=== PATIENT | female | born 1955 ===

== ENCOUNTER 2024-08-07 08:13 | Emergency (ER) | payer MEDICARE, MEDICAID, SELFPAY ==
--- NOTE | ~2024-08-07 | US_ITS ---
EXAMINATION: US ABDOMEN LIMITED CLINICAL INFORMATION: Right upper quadrant. COMPARISON: None available. TECHNIQUE: Real-time imaging of the right upper quadrant abdominal viscera. FINDINGS: PANCREAS: Normal. LIVER: Normal. The liver is normal in size. The liver contour is normal. Parenchymal echogenicity is normal. No focal hepatic lesion. There is no intrahepatic biliary duct dilatation seen. GALLBLADDER: A 4 mm polyp is evident within the gallbladder. There is some ringdown artifact indicative of hyperplastic cholecystosis. No shadowing calculus, wall thickening or pericholecystic edema is evident. There was some pain in the right upper quadrant upon sonographic compression. COMMON BILE DUCT: Normal in caliber measuring 0.4 cm in diameter. RIGHT KIDNEY: There are several calculi in the right kidney, including a 2 mm upper pole calculus and a 2 mm mid to upper pole calculus. There is mild fullness of the right renal collecting system. FREE FLUID: None. US/US abdomen limited IMPRESSION: 1. Hyperplastic cholecystosis and 4 mm gallbladder polyp. 2. At least 2 right renal 2 mm calculi, with Mild fullness of the right renal collecting system. Electronically signed by: Dontrell Barr MD 08/07/2024 01:23 PM EDT
--- NOTE | ~2024-08-07 | CT_ITS ---
EXAMINATION: CT ABDOMEN AND PELVIS WITHOUT CONTRAST CLINICAL INFORMATION: Abnormal prior ultrasound. Question of hydronephrosis. COMPARISON: Ultrasound abdomen 08/07/2024 TECHNIQUE: Multidetector volumetric imaging was performed from the superior aspect of the liver through the pubic symphysis. Sagittal and coronal reformatted images were obtained on the technologist's workstation. This CT examination was performed using dose optimization techniques as appropriate, variously including the following: *Automated exposure control *Adjustment of mA and/or kV according to patient size (this includes techniques or standardized protocols for targeted exams where dose is matched to indication/reason for exam; i.e. extremities or head) *Use of iterative reconstruction technique DLP: 608 mGy-cm FINDINGS: LUNG BASES: There are 2 small nodule seen at the left base, the largest (4/37) at [address] is recommended when clinically feasible. LIVER, GALLBLADDER, AND BILIARY TREE: The liver is normal in size, shape, and attenuation. No focal hepatic lesion or biliary ductal dilatation is present. The gallbladder wall appears slightly thickened and there may be a very subtle polyp at 2 mm near the fundus. No discrete stones or adjacent inflammatory change. This would appear to correlate well with the ultrasound findings. PANCREAS: Unremarkable. SPLEEN: Unremarkable. ADRENAL GLANDS: Unremarkable. KIDNEYS AND URETERS: No evidence for suspicious mass, or perinephric collection. The previously described right nephroliths are barely conspicuous and there is no evidence for right or left hydronephrosis at this time. BLADDER: Bladder is decompressed us suboptimally evaluated. GASTROINTESTINAL TRACT: No bowel obstruction or right or left lower quadrant inflammatory change. Appendix normal. Moderate stool burden observed in the colon. ABDOMINAL WALL: Slight ectasia at the level of the umbilicus of the rectus fascia but no maria antonia herniation containing bowel. LYMPH NODES: Normal. VASCULAR: There are ectatic and atherosclerotic but nonaneurysmal. PELVIC VISCERA: Unremarkable. OSSEOUS STRUCTURES: Degenerative changes in the lower thoracic and lower lumbar spine. There is degenerative change at the symphysis pubis. CT/CT abdomen pelvis wo IV con IMPRESSION: No hydronephrosis. No acute findings in the abdomen or pelvis. Slight gallbladder wall thickening. Recommend formal chest CT. Fleischner guidelines were followed. Electronically signed by: Timi Dobbins MD 08/07/2024 04:43 PM EDT
--- NOTE | ~2024-08-07 | XR_ITS ---
EXAMINATION: XR CHEST CLINICAL INFORMATION: Cough COMPARISON: None available. TECHNIQUE: 2 views of the chest were obtained. FINDINGS: Lungs clear. No pleural effusions. Heart and pulmonary vessels normal. XR/XR chest 2V IMPRESSION: No active disease. Electronically signed by: Timi Dobbins MD 08/07/2024 12:01 PM EDT
[2024-08-07 08:39] VITALS: BP 195/97; PULSE 71; RESP 16; TEMP 36.5; O2SAT 97; BMI 36.6
[2024-08-07 09:08] LABS: MANUAL DIFF FLAG NO
[2024-08-07 09:11] LABS: Basophils Absolute Auto 0.1 X10*3/uL (0.0-0.2); Basophils Percent Auto 0.7 % (0-2); Eosinophils Absolute Auto 0.2 X10*3/uL (0.0-0.4); Eosinophils Percent Auto 3.1 % (0-4); Hematocrit 40.5 % (37.0-47.0); Hemoglobin 13.6 g/dl (12.0-16.0); Imm Gran Abs Auto 0.02 X10*3/uL (0.00-0.03); Imm Gran Pct Auto 0.3 % (0.0-0.4); Lymphocytes Absolute Auto 1.8 X10*3/uL (1.2-4.9); Lymphocytes Percent Auto 25.7 % (20-40); Mean Corpuscular HGB Conc 33.6 g/dl (31.0-35.0); Mean Corpuscular Hemoglobin 29.6 pg (27.0-33.0); Mean Platelet Volume 9.4 fL (9.4-12.3); Monocytes Absolute Auto 0.6 X10*3/uL (0.1-1.2); Monocytes Percent Auto 8.9 % (2-11); Neutrophils Absolute Auto 4.2 x10*3/uL (2.0-8.3); Neutrophils Percent Auto 61.3 % (45-73); Platelet Count 183 X10*3/uL (160-400); White Blood Count 6.8 X10*3/uL (4.8-10.8)
[2024-08-07 09:17] LABS: Appearance Urine Clear; Color Urine Yellow; Glucose Urine UA Negative (Negative); Leukocyte Esterase Urine Trace (Negative); Nitrite Urine Negative (Negative); PH 7.5 (5.0-9.0); Specific Gravity - Urine 1.015 (1.005-1.025); UMIC TRIGGER UACC YES; Urine Blood Negative (Negative); Urine Ketones Negative (Negative); Urine Protein Negative (Neg-Trace)
[2024-08-07 09:20] LABS: Bacteria Urine None Seen (None Seen); Hyaline Casts Urine 0-2 /LPF (0-2); RBC Urine 0-2 /HPF (0-2); Squamous Epithelial Cell Urine 0-2 /HPF (0-2); WBC Urine 0-5 /HPF (0-5)
[2024-08-07 09:28] LABS: Alanine Aminotransferase 13 U/L (0-31); Albumin Level 4.3 g/dL (3.5-5.0); Alkaline Phosphatase 62 U/L (39-117); Anion Gap 9 (12-20); Aspartate Amino Transferase 20 U/L (5-31); Bilirubin Direct 0.2 mg/dL (0.0-0.5); Bilirubin Total 0.7 mg/dL (0.0-1.0); Blood Urea Nitrogen 10 mg/dL (9-16); Carbon Dioxide 28 mmol/L (22-29); Chloride 109 mmol/L (96-108); Creatinine Clr Calc Pharmacy 63.7; Estimated Glomerular Filt Rate > 60; Glucose Random 99 mg/dL (60-115); Lipase 37 U/L (8-78); Potassium 4.1 mmol/L (3.3-5.1); Sodium 142 mmol/L (135-145)
--- NOTE | 2024-08-07 11:17 | ED_ITS ---
HPI - General Adult General Chief complaint: Abdominal Pain Stated complaint: l ear pain-numbness in hands and feet-hip pain Time Seen by Provider: 08/07/24 10:37 Source: patient, RN notes reviewed and old records reviewed Mode of arrival: ambulatory History of Present Illness ED Provider: Yenni Braxton PA-C HPI narrative: 69-year-old Nigerian-speaking female with no significant past medical history presenting via EMS complaining of left ear pain since last night, and RUQ/LUQ abdominal pain with associated nausea. States ear pain prohibited her from sleeping. Denies fever, chills, vomiting, diarrhea/constipation, dysuria/hematuria, drainage from ear. Admits to swimming yesterday. Related Data Previous Rx's ?Medication ?Instructions ?Recorded ciprofloxacin 0.3 %-dexamethasone 4 drp otic (ears) BID 7 days #7.5 08/07/24 0.1 % ear drops,suspension mL Allergies Allergy/AdvReac Type Severity Reaction Status Date / Time procaine [From Novocain] Allergy Unknown Verified 08/07/24 08:40 Review of Systems 2 Review of Systems: Yes all other systems are reviewed and are negative Constitutional: Constitutional: Reports as per HPI [facility] Past Medical History Attestation statement: The following information was validated with the patient. Source: old records reviewed Social History Social History Smoked in Last 30 Days: No Advance Directives: No Advance Directives Information Provided: No Do you have a plan to hurt others: No Plan Physical Exam ED Vital Signs: Vital Signs - 24 hr 08/07/24 08:39 Temperature 97.7 F Pulse Rate 71 Respiratory Rate 16 Blood Pressure 195/97 H Pulse Oximetry 97 Oxygen Delivery Method Room Air BMI result Body Mass Index 36.6 Const General: cooperative, healthy appearing and no acute distress Orientation/consciousness: patient oriented x3 Limitations: no limitations HENMT Head: Yes normal to inspection and Yes atraumatic Ears: hearing grossly normal bilaterally, mastoids normal, Abnormal EAC present EAC tenderness on the left; no foreign body and no otic discharge, external ear abnormal auricular tenderness on the left and unable to visualize TM on the left (Due to canal swelling) General nose exam: Normal external nose present Face and sinus: Yes normal facial exam Mouth: Normal oral and palatal mucosa present and no drooling Throat: Yes posterior oropharynx normal, Yes tonsils normal, Yes uvula midline, No peritonsillar mass and No uvula laterally displaced Eyes General: appearance normal, both eyes and all related structures EOM: EOMs intact bilaterally Neck Neck: Yes normal visual inspection and Yes no meningeal signs Resp Effort & Inspection: normal respiratory effort and no respiratory distress Auscultation: clear to auscultation bilaterally, no crackles and no wheezes Cardio Rate: regular rate Heart sounds: S1 normal heart sound present and S2 normal heart sound present GI Inspection: Yes normal to inspection Palpation (GI): Soft to palpation, Tenderness to palpation present (GI) in the RUQ; with no rebound tenderness, no guarding and not rigid General: Yes no CVA tenderness Back/Spine/Pelvis Back: no CVA tenderness Skin Rashes: no rashes Wounds: no wounds Neuro General: patient oriented x3, tone normal and no meningeal signs Cranial nerves: Yes CN's II-XII intact bilaterally Gait exam (Neuro): Normal gait present Extrem General: Yes normal to inspection Course Course Course Narrative: -labs reassuring. UA negative -rapid strep negative XR chest 2V IMPRESSION: No active disease. -1333--US abdomen limited IMPRESSION: 1. Hyperplastic cholecystosis and 4 mm gallbladder polyp. 2. At least 2 right renal 2 mm calculi, with Mild fullness of the right renal collecting system. > will obtain CT for further eval and rule out obstructing stones/pathology. No evidence of acute cholecystitis. And labs reassuring -viral studies negative 1652-CT abdomen pelvis wo IV con IMPRESSION: No hydronephrosis. No acute findings in the abdomen or pelvis. Slight gallbladder wall thickening. Recommend formal chest CT. Fleischner guidelines were followed. Discussed with patient abnormal pulmonary nodule findings and recommended chest CT outpatient and potential for malignancy. Discussed importance of establishing care with a PCP and follow-up with gastroenterology. Prescription sent for otitis externa. > Results discussed with patient including worrisome signs and symptoms and strict return precautions, and when to return to the emergency department. They verbalized understanding and feel safe for discharge at this time. Medical Decision Making Medical Decision Making MDM Narrative: 69-year-old Nigerian-speaking female with no significant past medical history presenting via EMS complaining of left ear pain since last night, and RUQ/LUQ abdominal pain with associated nausea. On exam vital signs stable, NAD, nontoxic appearing, left ear consistent with otitis externa. Abdomen soft with RUQ tenderness, no rebound or guarding. Concern for cholecystitis/lithiasis vs pancreatitis. Mastoids WNL. Oropharynx WNL. Low suspicion for ACS, mastoiditis, chronic otitis externa, appendicitis/diverticulitis Plan: EKG, labs, UA, CXR, ultrasound, re-evaluate Please refer to course for remaining clinical decision making, interpretation of labs/imaging results, and discussions with consultants and/or family members. Differential Diagnosis Differential Diagnoses: The differential diagnosis associated with the presentation includes As above Admission/Observation Consideration of admission/observation: Escalation of care including admission/observation considered Lab Data MDM Lab Attestation statement: I reviewed the patient's lab results. 08/07/24 09:01 08/07/24 09:01 Labs: Lab Results 08/07/24 08/07/24 08/07/24 Range/Units 09:01 09:07 12:38 WBC 6.8 (4.8-10.8) X10*3/uL RBC 4.60 (4.20-5.50) X10*6/uL Hgb 13.6 (12.0-16.0) g/dl Hct 40.5 (37.0-47.0) % MCV 88.0 (80.0-98.0) fL MCH 29.6 (27.0-33.0) pg MCHC 33.6 (31.0-35.0) g/dl RDW 13.0 (11.0-16.0) % Plt Count 183 (160-400) X10*3/uL MPV 9.4 (9.4-12.3) fL Immature Gran % (Auto) 0.3 (0.0-0.4) % Neut % (Auto) 61.3 (45-73) % Lymph % (Auto) 25.7 (20-40) % [place] % (Auto) 8.9 (2-11) % Eos % (Auto) 3.1 (0-4) % Baso % (Auto) 0.7 (0-2) % Lymph # (Auto) 1.8 (1.2-4.9) X10*3/uL [place] # (Auto) 0.6 (0.1-1.2) X10*3/uL Eos # (Auto) 0.2 (0.0-0.4) X10*3/uL Baso # (Auto) 0.1 (0.0-0.2) X10*3/uL Abs Immat Gran (auto) 0.02 (0.00-0.03) X10*3/uL Absolute Neuts (auto) 4.2 (2.0-8.3) x10*3/uL Absolute Nucleated RBC 0.000 (0.0-0.012) X10*3/uL Nucleated RBC % (auto) 0.0 (0.0-0.2) /100WBC Sodium 142 (135-145) mmol/L Potassium 4.1 (3.3-5.1) mmol/L Chloride 109 H (96-108) mmol/L Carbon Dioxide 28 (22-29) mmol/L Anion Gap 9 L (12-20) BUN 10 (9-16) mg/dL Creatinine 0.73 (0.5-1.4) mg/dL Estim Creat Clear Calc 63.7 Estimated GFR > 60 Random Glucose 99 (60-115) mg/dL Calcium 9.0 (8.4-10.2) mg/dL Magnesium 2.0 (1.6-2.6) mg/dL Total Bilirubin 0.7 (0.0-1.0) mg/dL Direct Bilirubin 0.2 (0.0-0.5) mg/dL AST 20 (5-31) U/L ALT 13 (0-31) U/L Alkaline Phosphatase 62 (39-117) U/L Total Protein 7.0 (6.5-8.0) g/dL Albumin 4.3 (3.5-5.0) g/dL Lipase 37 (8-78) U/L Urine Color Yellow Urine Appearance Clear Urine pH 7.5 (5.0-9.0) Ur Specific [place] 1.015 (1.005-1.025) Urine Protein Negative (Neg-Trace) mg/dL Urine Glucose (UA) Negative (Negative) mg/dL Urine Ketones Negative (Negative) mg/dL Urine Blood Negative (Negative) Urine Nitrite Negative (Negative) Ur Leukocyte Esterase Trace H (Negative) Urine RBC 0-2 (0-2) /HPF Urine WBC 0-5 (0-5) /HPF Ur Squamous Epith Cells 0-2 (0-2) /HPF Urine Bacteria None Seen (None Seen) Hyaline Casts 0-2 (0-2) /LPF Influenza Type A (PCR) NEGATIVE (Negative) Influenza Type B (PCR) NEGATIVE (Negative) RSV RNA Qual (PCR) NEGATIVE (Negative) SARS-CoV-2 RNA (RT-PCR) NEGATIVE (Negative) S. pyogenes GrpA ELLA Negative (Negative) Independent Interpretation I performed an independent interpretation of an: EKG, Plain X-Ray and Ultrasound Radiology Impression Discussion of test interpretation with radiology: I have reviewed the radiologist's reading. External Record Review External record reviewed: Inpatient record, Office record, Outpatient record, Prior outpatient labs, Prior outpatient radiology, Primary care record and Outside ED record Tests considered The following testing was considered but not selected: As above Prescription Management I considered prescription management with: Pain Medication Discharge Plan Discharge Clinical Impression: Otitis externa, Incidental pulmonary nodule, Acute upper abdominal pain Patient Disposition: Home, Self-Care Instructions: Otitis Externa (DC), Abdominal Pain (ED) Additional Instructions: You have an inner ear infection. Please use drops as prescribed. YOU NEED TO ESTABLISH CARE WITH A PRIMARY CARE DOCTOR In addition you need to follow-up with gastroenterology. Limit fat and triglycerides in your diet Your CT scan also shows some nodules in your lung bases, we recommend a formal chest CT. You need to have this establish with her primary care doctor If your symptoms persist or worsen, your pain becomes worse/unbearable, you have fever, persistent abdominal pain, nausea/vomiting return to the emergency department US abdomen limited IMPRESSION: 1. Hyperplastic cholecystosis and 4 mm gallbladder polyp. 2. At least 2 right renal 2 mm calculi, with Mild fullness of the right renal collecting system. CT abdomen pelvis wo IV con IMPRESSION: LUNG BASES: There are 2 small nodule seen at the left base, the largest (4/37) at 5 mm. A formal chest CT is recommended when clinically feasible No hydronephrosis. No acute findings in the abdomen or pelvis. Slight gallbladder wall thickening. Recommend formal chest CT. Prescriptions: New ciprofloxacin-dexamethasone 0.3-0.1 % drops,suspension 4 drp otic (ears) BID 7 Days Qty: 7.5 0RF Referrals: [facility] [place] [facility] [Provider Group] [facility] [place] [facility] [Provider Group] [facility] [place] [facility] [Provider Group] Stand Alone Forms: Against Medical Advice Print Language: Nigerian
--- NOTE | 2024-08-07 12:02 | ECG_ITS ---
Test Reason : WEAKNESS Blood Pressure : / mmHG Vent. Rate : 065 BPM Atrial Rate : 065 BPM P-R Int : 162 ms QRS Dur : 088 ms QT Int : 430 ms P-R-T Axes : 068 003 085 degrees QTc Int : 447 ms Normal sinus rhythm Possible Left atrial enlargement Minimal voltage criteria for LVH, may be normal variant ( Loki product ) Nonspecific ST and T wave abnormality Abnormal ECG No previous ECGs available Referred By: Yenni Braxton Electronically Signed By:MONICA SAMPSON MD
[2024-08-07 12:56] LABS: IDNOW Serial# 08D9AD1C
[2024-08-07 12:57] LABS: Strep A Nucleic Acid Negative (Negative)
[2024-08-07 13:29] LABS: Influenza A PCR NEGATIVE (Negative); Influenza B PCR NEGATIVE (Negative); Resp Syncy Virus RNA Qual PCR NEGATIVE (Negative); SARS COV2 PCR INHOUSE NEGATIVE (Negative)
[2024-08-07 17:22] VITALS: BP 180/82; PULSE 71; RESP 18; TEMP 36.8; O2SAT 95
[2024-08-07 17:23] VITALS: BP 180/82; PULSE 72; RESP 18; TEMP 36.8; O2SAT 98
== END 2024-08-07 17:24 | disposition home or self-care (01) ==
PROVIDERS: Physician Assistant; Emergency Provider Emergency Medicine
DX: H60.92 Unspecified otitis externa, left ear (principal); R10.10 Upper abdominal pain, unspecified; R91.8 Other nonspecific abnormal finding of lung field; Z03.818 Encounter for observation for suspected exposure to other biological agents ruled out
CPT/HCPCS: 0241U; 36415; 71046; 74176; 76705; 80048; 80076; 81001; 83690; 83735; 85025; 87651; 93005; 99284; 99285

== ENCOUNTER → 2024-08-07 12:02 | Outpatient (BNV) | payer MEDICARE, MEDICAID, SELFPAY | PROVIDERS: Emergency Provider Emergency Medicine; Visit Provider Internal Medicine Cardiovascular Disease | DX: R94.31 Abnormal electrocardiogram [ECG] [EKG] (principal) | CPT/HCPCS: 93010 ==